=== PATIENT | female | born 1975 | race Caucasian/White ===

== ENCOUNTER 2017-04-17 20:02 | Emergency (ER) | payer BC ==
[~2017-04-17] VITALS: Ht 160 cm; Wt 83.0 kg
[2017-04-18] MEDS ORDERED: ONDANSETRON HCL 4MG/2ML VIAL IV STA (01:44)
[2017-04-18] MEDS ORDERED: SODIUM CHLORIDE 0.9% 1,000 ML IV ONE (01:44)
[2017-04-18 02:04] LABS: HEMATOCRIT. 26.4 % (36.0-48.0); HEMOGLOBIN. 7.6 g/dL (12.0-16.0); LYMPHOCYTES % 30.7 % (20.0-50.0); MEAN CORPUSCULAR HEMOGLOBIN 16.8 pg (28.0-32.0); MEAN CORPUSCULAR VOLUME 58.1 fL (81.0-99.0); MEAN PLATELET VOLUME 8.7 fl (7.4-10.4); MONOCYTES % 8.4 % (2.0-8.0); NEUTROPHILS % 56.9 % (40.0-76.0); PLATELET 246 x1000/uL (130-400); RED BLOOD CELL COUNT 4.54 mill/uL (4.2-5.4); RED CELL DISTRIBUTION WIDTH 19.5 % (11.6-14.6)
[2017-04-18 02:04] LABS: CLARITY URINE CLOUDY (CLEAR); COLOR URINE DARK YELLOW (YELLOW); GLUCOSE URINE NEGATIVE (NEGATIVE); KETONES URINE TRACE (NEGATIVE); LEUKOCYTE ESTERASE URINE NEGATIVE (NEGATIVE); NITRITE URINE NEGATIVE (NEGATIVE); OCCULT BLOOD URINE NEGATIVE (NEGATIVE); PH URINE 5.5 (4.5-8.0); PROTEIN URINE NEGATIVE (NEGATIVE); SPECIFIC GRAVITY URINE 1.032 (1.005-1.030); UROBILINOGEN URINE 0.2 E.U./dL (0.2-1.0)
[2017-04-18 02:13] LABS: CHLORIDE 106 mEq/L (98-107)
[2017-04-18 02:19] LABS: PLATELET ESTIMATE NORMAL
[2017-04-18 02:23] LABS: CARBON DIOXIDE 28 mEq/L (21-32); ETHANOL BLOOD < 10 mg/dL
[2017-04-18] MEDS ORDERED: KETOROLAC 30MG/ML VIAL IV STA (02:25)
[2017-04-18 02:36] VITALS: BP 137/77
[2017-04-18 02:54] LABS: *AMPHETAMINES SCREEN URINE NEGATIVE (NEGATIVE); *BARBITURATES SCREEN URINE NEGATIVE (NEGATIVE); *BENZODIAZEPINES SCREEN URINE NEGATIVE (NEGATIVE); *COCAINE SCREEN URINE NEGATIVE (NEGATIVE); CANNABINOID URINE SCREEN NEGATIVE (NEGATIVE); METHADONE URINE SCREEN NEGATIVE (NEGATIVE); OPIATES URINE SCREEN NEGATIVE (NEGATIVE); PHENCYCLIDINE URINE SCREEN NEGATIVE (NEGATIVE)
== END 2017-04-18 04:03 | disposition home or self-care (01) ==
LOC: ER 20:02
DX: D64.9 Anemia, unspecified (principal); R42 Dizziness and giddiness; R03.0 Elevated blood-pressure reading, without diagnosis of hypertension; R74.0 Nonspecific elevation of levels of transaminase and lactic acid dehydrogenase [LDH]
CPT/HCPCS: 36415; 80053; 80305; 81001; 81025; 85025; 96361; 96374; 96375; 99284; G0482; J1885; J2405; J7030; Z7610

== ENCOUNTER 2017-05-31 08:32 | Inpatient (IN) | payer BC ==
[~2017-05-31] VITALS: Ht 160 cm; Wt 83.9 kg
[2017-05-31] VITALS (10 sets, daily range): BP systolic 100–115; BP diastolic 50–71
[2017-05-31] MEDS ORDERED: FERR140T PO (08:38)
[2017-05-31] MEDS ORDERED: ONDANSETRON HCL 4MG/2ML VIAL IV PRN (09:00)
[2017-05-31] MEDS ORDERED: CLONIDINE 0.1MG TABLET PO PRN (09:00)
[2017-05-31] MEDS ORDERED: HYDROMORPHONE HCL/PF 2MG/ML CPJ IV PRN (09:00)
[2017-05-31] MEDS ORDERED: DOCUSATE SODIUM 100MG CAPSULE PO PRN (09:00)
[2017-05-31 09:19] LABS: HEMATOCRIT. 25.5 % (36.0-48.0); HEMOGLOBIN. 7.8 g/dL (12.0-16.0); LYMPHOCYTES % 37.5 % (20.0-50.0); MEAN CORPUSCULAR HEMOGLOBIN 17.9 pg (28.0-32.0); MEAN CORPUSCULAR VOLUME 58.6 fL (81.0-99.0); MEAN PLATELET VOLUME 8.4 fl (7.4-10.4); MONOCYTES % 10.3 % (2.0-8.0); NEUTROPHILS % 49.2 % (40.0-76.0); PLATELET 216 x1000/uL (130-400); RED BLOOD CELL COUNT 4.35 mill/uL (4.2-5.4); RED CELL DISTRIBUTION WIDTH 19.6 % (11.6-14.6)
[2017-05-31 09:38] LABS: CARBON DIOXIDE 25 mEq/L (21-32); CHLORIDE 106 mEq/L (98-107)
[2017-05-31 09:45] LABS: CLARITY URINE CLEAR (CLEAR); COLOR URINE YELLOW (YELLOW); GLUCOSE URINE NEGATIVE (NEGATIVE); KETONES URINE NEGATIVE (NEGATIVE); LEUKOCYTE ESTERASE URINE NEGATIVE (NEGATIVE); NITRITE URINE NEGATIVE (NEGATIVE); OCCULT BLOOD URINE NEGATIVE (NEGATIVE); PROTEIN URINE NEGATIVE (NEGATIVE); SPECIFIC GRAVITY URINE 1.023 (1.005-1.030); UROBILINOGEN URINE 0.2 E.U./dL (0.2-1.0)
[2017-05-31 09:47] LABS: HCG SCREEN NEGATIVE
[2017-05-31 09:54] LABS: PLATELET ESTIMATE NORMAL
[2017-05-31] MEDS: ACETAMINOPHEN 325MG TABLET PO PRN ×2 (15:07→21:18)
[2017-05-31] MEDS ORDERED: LORAZEPAM 2MG/ML CPJ IV NR (18:40)
[2017-05-31] MEDS: DIPHENHYDRAMINE 50MG/ML VIAL IV PRN ×2 (19:10→23:42)
[2017-06-01 00:25] VITALS: BP_SYST 104; BP_DIAS 62; BP_DIAS 66
[2017-06-01 00:43] VITALS: BP 104/62
[2017-06-01 01:11] LABS: INR 1.1
[2017-06-01 01:17] LABS: HEMATOCRIT 30.8 % (36.0-48.0); HEMOGLOBIN 9.2 g/dL (12.0-16.0)
[2017-06-01 04:31] VITALS: BP 109/58
[2017-06-01 08:00] VITALS: BP 116/68
[2017-06-01] MEDS: DIPHENHYDRAMINE 50MG/ML VIAL IV PRN (08:18)
[2017-06-01 08:20] LABS: BASOPHILS % 0.8 % (0.0-2.0); EOSINOPHILS % 2.4 % (0.0-5.0); HEMATOCRIT. 32.5 % (36.0-48.0); HEMOGLOBIN. 9.9 g/dL (12.0-16.0); LYMPHOCYTES % 40.7 % (20.0-50.0); MEAN CORPUSCULAR HEMOGLOBIN 19.5 pg (28.0-32.0); MEAN CORPUSCULAR VOLUME 64.1 fL (81.0-99.0); MEAN PLATELET VOLUME 8.9 fl (7.4-10.4); MONOCYTES % 10.2 % (2.0-8.0); NEUTROPHILS % 45.9 % (40.0-76.0); PLATELET 220 x1000/uL (130-400); RED BLOOD CELL COUNT 5.08 mill/uL (4.2-5.4); RED CELL DISTRIBUTION WIDTH 25.4 % (11.6-14.6)
[2017-06-01] MEDS ORDERED: GADOBENATE DIMEGLUMINE 529 MG/ML 10ML IV ONE (09:29)
[2017-06-01 10:15] VITALS: BP 116/68
[2017-06-01 16:00] VITALS: BP 120/75
== END 2017-06-01 17:20 | disposition home or self-care (01) | DRG 74 ==
LOC: ER 08:42 → 8WST 10:10 → ENRESERV 11:04
PROVIDERS: ADMIT Internal Medicine Geriatric Medicine; ATTEND Internal Medicine Geriatric Medicine
PROC: 30233N1 Transfusion of Nonautologous Red Blood Cells into Peripheral Vein, Percutaneous Approach (ICD-10-PCS; principal; 2017-05-31)
DX: G90.8 Other disorders of autonomic nervous system (principal); D25.9 Leiomyoma of uterus, unspecified; D50.9 Iron deficiency anemia, unspecified; N83.202 Unspecified ovarian cyst, left side; N88.8 Other specified noninflammatory disorders of cervix uteri; Z82.62 Family history of osteoporosis; Z87.891 Personal history of nicotine dependence
CPT/HCPCS: 36415; 72197; 80053; 81003; 84703; 85014; 85018; 85025; 85049; 85384; 85610; 86850; 86900; 86920; 99285; A9577; J1200; J2060; J7040; P9016

== ENCOUNTER → 2017-06-22 | Outpatient (CLI) | payer BC ==
[~2017-06-22] MED LIST: FERR140T PO
[2017-06-22 11:41] LABS: BASOPHILS % 0.8 % (0.0-2.0); EOSINOPHILS % 6.2 % (0.0-5.0); HEMATOCRIT. 34.5 % (36.0-48.0); HEMOGLOBIN. 10.2 g/dL (12.0-16.0); LYMPHOCYTES % 25.9 % (20.0-50.0); MEAN CORPUSCULAR HEMOGLOBIN 19.9 pg (28.0-32.0); MEAN CORPUSCULAR VOLUME 67.2 fL (81.0-99.0); MEAN PLATELET VOLUME 8.8 fl (7.4-10.4); MONOCYTES % 7.8 % (2.0-8.0); NEUTROPHILS % 59.3 % (40.0-76.0); PLATELET 262 x1000/uL (130-400); RED BLOOD CELL COUNT 5.14 mill/uL (4.2-5.4); RED CELL DISTRIBUTION WIDTH 29.5 % (11.6-14.6)
[2017-06-22 15:29] LABS: PLATELET ESTIMATE NORMAL
== END | disposition home or self-care (01) ==
LOC: LAB 11:17
PROVIDERS: ATTEND Obstetrics & Gynecology Obstetrics
DX: D64.9 Anemia, unspecified (principal)
CPT/HCPCS: 36415; 85025

== ENCOUNTER 2017-07-13 06:10 | Inpatient (IN) | payer BC ==
[~2017-07-13] VITALS: Ht 160 cm; Wt 82.6 kg
[2017-07-13 07:07] LABS: BASOPHILS % 0.6 % (0.0-2.0); EOSINOPHILS % 2.4 % (0.0-5.0); HEMATOCRIT. 34.5 % (36.0-48.0); HEMOGLOBIN. 10.5 g/dL (12.0-16.0); LYMPHOCYTES % 28.9 % (20.0-50.0); MEAN CORPUSCULAR HEMOGLOBIN 22.1 pg (28.0-32.0); MEAN CORPUSCULAR VOLUME 72.2 fL (81.0-99.0); MEAN PLATELET VOLUME 8.6 fl (7.4-10.4); MONOCYTES % 9.1 % (2.0-8.0); PLATELET 237 x1000/uL (130-400); RED BLOOD CELL COUNT 4.78 mill/uL (4.2-5.4)
[2017-07-13 07:16] LABS: PARTIAL THROMBOPLASTIN TIME 26.4 sec (23.4-31.0); PROTHROMBIN TIME 10.7 sec (9.4-11.6)
[2017-07-13 07:20] LABS: CARBON DIOXIDE 30 mEq/L (21-32); CHLORIDE 104 mEq/L (98-107)
[2017-07-13 07:24] LABS: CLARITY URINE CLEAR (CLEAR); COLOR URINE YELLOW (YELLOW); KETONES URINE TRACE (NEGATIVE); LEUKOCYTE ESTERASE URINE NEGATIVE (NEGATIVE); NITRITE URINE NEGATIVE (NEGATIVE); OCCULT BLOOD URINE NEGATIVE (NEGATIVE); PROTEIN URINE NEGATIVE (NEGATIVE); SPECIFIC GRAVITY URINE 1.029 (1.005-1.030)
[2017-07-13 07:34] LABS: UCG SCREEN NEGATIVE
[2017-07-13] MEDS ORDERED: LACTATED RINGERS 1,000 ML IV SCH (08:45)
[2017-07-13] MEDS ORDERED: SKIN ADHESIVE 0.7 GM EA TOP ONE (09:10)
[2017-07-13] MEDS ORDERED: BUPIVACAINE HCL/EPINEPHRINE 0.5%/0.0005 30ML ONE (09:11)
[2017-07-13] MEDS ORDERED: LIDOCAINE HCL/PF 1% 10 MG/ML 5ML VIAL ONE (09:20)
[2017-07-13] MEDS ORDERED: PROPOFOL 200MG/20ML VIAL IV ONE (09:20)
[2017-07-13] MEDS ORDERED: ROCURONIUM BROMIDE 10MG/ML VIAL 5ML IV ONE ×2 (09:20→13:27)
[2017-07-13] MEDS ORDERED: FENTANYL CITRATE/PF 50MCG/ML 2ML VIAL ONE (09:22)
[2017-07-13] MEDS ORDERED: MIDAZOLAM HCL 2 MG/2 ML VIAL ONE (09:22)
[2017-07-13] MEDS ORDERED: CEFAZOLIN SODIUM 1000MG/VIAL ONE (09:28)
[2017-07-13] MEDS ORDERED: SUCCINYLCHOLINE CHLORIDE 200MG/10ML VIAL IV ONE (09:34)
[2017-07-13 09:49] LABS: PLATELET ESTIMATE NORMAL
[2017-07-13] MEDS ORDERED: LABETALOL HCL 5MG/ML VIAL 20ML IV PRN (10:00)
[2017-07-13] MEDS ORDERED: MEPERIDINE HCL/PF 25MG/ML CPJ IV PRN ×2 (10:00→11:15)
[2017-07-13] MEDS ORDERED: HYDROMORPHONE HCL/PF 2MG/ML CPJ IV PRN ×2 (10:00→11:15)
[2017-07-13] MEDS ORDERED: ONDANSETRON HCL 4MG/2ML VIAL IV PRN ×3 (10:00→16:30)
[2017-07-13] MEDS ORDERED: HYDROMORPHONE HCL/PF 2MG/ML (OR) ONE ×2 (10:39→15:00)
[2017-07-13] MEDS ORDERED: LABETALOL HCL 20MG/4ML CARPUJECT IV PRN (11:15)
[2017-07-13] MEDS ORDERED: VASOPRESSIN 20 UNIT/ML 1ML ONE (13:42)
[2017-07-13] MEDS ORDERED: SODIUM CHLORIDE 0.9% 100 ML ONE (13:43)
[2017-07-13] MEDS ORDERED: GLYCOPYRROLATE 0.2 MG/ML 2ML VIAL ONE (14:48)
[2017-07-13] MEDS ORDERED: NEOSTIGMINE METHYLSULFATE 1MG/ML 10 ML VIAL ONE (14:48)
[2017-07-13] MEDS ORDERED: IBUPROFEN 800MG TABLET PO PRN (16:30)
[2017-07-13] MEDS ORDERED: DIPHENHYDRAMINE 50MG/ML VIAL IV NR (16:59)
[2017-07-13 20:00] VITALS: BP 126/77
[2017-07-13] MEDS ORDERED: HYDROMORPHONE HCL/PF 2MG/ML CPJ IV NR (20:51)
[2017-07-13 22:23] VITALS: BP 115/76
[2017-07-13] MEDS: LACTATED RINGERS 1,000 ML IV SCH (23:07)
[2017-07-14] VITALS (7 sets, daily range): BP systolic 104–126; BP diastolic 60–81
[2017-07-14] MEDS: HYDROMORPHONE HCL/PF 2MG/ML CPJ IV PRN ×6 (00:21→22:14)
[2017-07-14] MEDS ORDERED: DIPHENHYDRAMINE 50MG/ML VIAL IV NR (02:00)
[2017-07-14] MEDS: DIPHENHYDRAMINE 50MG/ML VIAL IV PRN ×3 (04:48→22:12)
[2017-07-14 06:36] LABS: BASOPHILS % 0.2 % (0.0-2.0); EOSINOPHILS % 0.1 % (0.0-5.0); HEMATOCRIT. 26.9 % (36.0-48.0); HEMOGLOBIN. 8.3 g/dL (12.0-16.0); MEAN CORPUSCULAR HEMOGLOBIN 22.7 pg (28.0-32.0); MEAN CORPUSCULAR VOLUME 73.6 fL (81.0-99.0); MONOCYTES % 7.7 % (2.0-8.0); PLATELET 200 x1000/uL (130-400); RED BLOOD CELL COUNT 3.65 mill/uL (4.2-5.4); RED CELL DISTRIBUTION WIDTH 32.5 % (11.6-14.6)
[2017-07-14] MEDS: DOCUSATE SODIUM 250MG CAPSULE PO SCH (09:22)
[2017-07-14] MEDS: FERROUS SULFATE 325MG TABLET PO SCH (17:49)
[2017-07-14 23:26] LABS: HEMATOCRIT 27.4 % (36.0-48.0); HEMOGLOBIN 8.5 g/dL (12.0-16.0); MEAN CORPUSCULAR HEMOGLOBIN 22.7 pg (28.0-32.0); MEAN CORPUSCULAR VOLUME 73.8 fL (81.0-99.0); PLATELET 180 x1000/uL (130-400); RED BLOOD CELL COUNT 3.72 mill/uL (4.2-5.4); RED CELL DISTRIBUTION WIDTH 32.2 % (11.6-14.6)
[2017-07-14] MEDS ORDERED: IOHEXOL-350 100 ML BOTTLE ONE (23:27)
[2017-07-15 04:00] VITALS: BP 114/68
[2017-07-15 05:40] LABS: BG BASE EXCESS 3.3 mmol/L (-2.0-2.0); BG CARBOXYHEMOGLOBIN 0.6 % (0.5-1.5); BG DEOXYHEMOGLOBIN 2.4 % (0.0-5.0); BG FRACTION INSPIRED OXYGEN 21; BG HCO3 ACT 28.6 mmol/L (22.0-26.0); BG METHEMOGLOBIN 0.5 % (0.0-1.5); BG OXYGEN SATURATION 97.6 % (92.0-98.5); BG OXYHEMOGLOBIN 96.5 % (94.0-97.0); BG PCO2 47.7 mmHg (35.0-45.0); BG PH 7.396 (7.350-7.450); BG PO2 102.7 mmHg (75.0-100.0); BG SAMPLE SITE LEFT BRACHIAL; BG TOTAL HEMOGLOBIN 8.8 g/dL (12.0-18.0); BG VENT MODE ROOM AIR
[2017-07-15] MEDS: DIPHENHYDRAMINE 50MG/ML VIAL IV PRN ×3 (05:45→19:56)
[2017-07-15] MEDS: HYDROMORPHONE HCL/PF 2MG/ML CPJ IV PRN ×3 (05:46→19:55)
[2017-07-15] MEDS: LACTATED RINGERS 1,000 ML IV SCH (07:06)
[2017-07-15 07:53] LABS: BASOPHILS % 0.3 % (0.0-2.0); EOSINOPHILS % 1.1 % (0.0-5.0); HEMATOCRIT. 26.2 % (36.0-48.0); HEMOGLOBIN. 8.2 g/dL (12.0-16.0); LYMPHOCYTES % 28.4 % (20.0-50.0); MEAN CORPUSCULAR HEMOGLOBIN 23.3 pg (28.0-32.0); MEAN CORPUSCULAR VOLUME 74.8 fL (81.0-99.0); MONOCYTES % 8.2 % (2.0-8.0); PLATELET 173 x1000/uL (130-400); RED CELL DISTRIBUTION WIDTH 32.3 % (11.6-14.6)
[2017-07-15 08:00] VITALS: BP 105/62
[2017-07-15] MEDS ORDERED: IPRATROPIUM/ALBUTEROL 0.5-3(2.5)MG/3ML NEB HHN NR (08:15)
[2017-07-15] MEDS ORDERED: ONDANSETRON HCL 4MG/2ML VIAL IV PRN (08:30)
[2017-07-15] MEDS ORDERED: GUAIFENESIN 200MG/10ML SUGAR FREE UDC PO PRN (08:30)
[2017-07-15 08:43] LABS: CHLORIDE 103 mEq/L (98-107)
[2017-07-15] MEDS ORDERED: FLUTICASONE/VILANTEROL 200-25 BLST.W.DEV ORI SCH (09:00)
[2017-07-15] MEDS ORDERED: ENOXAPARIN 40MG/0.4ML SYR SUBCUT SCH (09:00)
[2017-07-15] MEDS: ENOXAPARIN 30MG/0.3ML SYR SUBCUT SCH ×2 (09:07→20:03)
[2017-07-15] MEDS: DOCUSATE SODIUM 250MG CAPSULE PO SCH (09:07)
[2017-07-15 09:13] LABS: CARBON DIOXIDE 27 mEq/L (21-32)
[2017-07-15] MEDS: IRON SUCROSE COMPLEX 100 MG/5 ML ML IV SCH (09:29)
[2017-07-15 10:26] LABS: TOTAL IRON BINDING CAPACITY 345 ug/dL (250-450)
[2017-07-15 12:00] VITALS: BP 106/67
[2017-07-15] MEDS ORDERED: POTASSIUM CHLORIDE 20MEQ TABLET SR PO NR (13:05)
[2017-07-15] MEDS: IPRATROPIUM/ALBUTEROL 0.5-3(2.5)MG/3ML NEB HHN SCH ×3 (13:38→20:30)
[2017-07-15 16:00] VITALS: BP 122/78
[2017-07-15] MEDS ORDERED: MONTELUKAST SODIUM 10MG TABLET PO SCH (17:00)
[2017-07-15 20:00] VITALS: BP 131/76
[2017-07-15] MEDS: BUDESONIDE 0.5MG/2ML NEB HHN SCH (20:30)
[2017-07-16] VITALS: BP 131/77
[2017-07-16] MEDS: IPRATROPIUM/ALBUTEROL 0.5-3(2.5)MG/3ML NEB HHN SCH ×4 (00:08→12:07)
[2017-07-16] MEDS: DIPHENHYDRAMINE 50MG/ML VIAL IV PRN ×2 (02:27→08:45)
[2017-07-16] MEDS: HYDROMORPHONE HCL/PF 2MG/ML CPJ IV PRN ×2 (02:27→08:46)
[2017-07-16 06:00] VITALS: BP 114/65
[2017-07-16 08:00] VITALS: BP 133/86
[2017-07-16 08:28] LABS: BASOPHILS % 0.4 % (0.0-2.0); EOSINOPHILS % 2.9 % (0.0-5.0); HEMATOCRIT. 27.1 % (36.0-48.0); HEMOGLOBIN. 8.4 g/dL (12.0-16.0); LYMPHOCYTES % 24.4 % (20.0-50.0); MEAN CORPUSCULAR HEMOGLOBIN 23.2 pg (28.0-32.0); MEAN CORPUSCULAR VOLUME 74.8 fL (81.0-99.0); MONOCYTES % 8.3 % (2.0-8.0); PLATELET 201 x1000/uL (130-400); RED BLOOD CELL COUNT 3.63 mill/uL (4.2-5.4); RED CELL DISTRIBUTION WIDTH 32.1 % (11.6-14.6)
[2017-07-16] MEDS: FERROUS SULFATE 325MG TABLET PO SCH ×2 (08:32→08:54)
[2017-07-16] MEDS: IRON SUCROSE COMPLEX 100 MG/5 ML ML IV SCH (08:32)
[2017-07-16] MEDS: DOCUSATE SODIUM 250MG CAPSULE PO SCH (08:32)
[2017-07-16] MEDS: BUDESONIDE 0.5MG/2ML NEB HHN SCH (08:45)
[2017-07-16 08:46] LABS: CARBON DIOXIDE 27 mEq/L (21-32); CHLORIDE 103 mEq/L (98-107)
[2017-07-16] MEDS: ENOXAPARIN 30MG/0.3ML SYR SUBCUT SCH (08:55)
[2017-07-16] MEDS ORDERED: POTASSIUM CHLORIDE 20MEQ TABLET SR PO SCH (09:00)
[2017-07-16 10:15] VITALS: BP 119/80
== END 2017-07-16 12:30 | disposition home or self-care (01) | DRG 742 ==
LOC: OR 06:10 → EEVIPCON 06:10 → 6EST 20:00 → 7WST 07-14 23:48
PROVIDERS: ADMIT Internal Medicine Geriatric Medicine; ATTEND Internal Medicine Geriatric Medicine
PROC: 0UT74ZZ Resection of Bilateral Fallopian Tubes, Percutaneous Endoscopic Approach (ICD-10-PCS; 2017-07-13)
PROC: 8E0W4CZ Robotic Assisted Procedure of Trunk Region, Percutaneous Endoscopic Approach (ICD-10-PCS; 2017-07-13)
PROC: 0UT94ZZ Resection of Uterus, Percutaneous Endoscopic Approach (ICD-10-PCS; principal; 2017-07-13 09:00)
DX: D25.9 Leiomyoma of uterus, unspecified (principal); J96.02 Acute respiratory failure with hypercapnia; J96.01 Acute respiratory failure with hypoxia; N93.9 Abnormal uterine and vaginal bleeding, unspecified; D50.9 Iron deficiency anemia, unspecified; N80.9 Endometriosis, unspecified; L29.9 Pruritus, unspecified; R00.0 Tachycardia, unspecified; J44.9 Chronic obstructive pulmonary disease, unspecified; Z98.51 Tubal ligation status; Z90.722 Acquired absence of ovaries, bilateral
CPT/HCPCS: 36415; 36600; 71010; 71275; 80048; 81003; 81025; 82375; 82805; 83540; 83550; 85025; 85027; 85610; 85730; 86850; 86870; 86900; 86920; 88302; 88307; 93005; 93970; 97162; C1893; J0171; J0330; J0690; J1170; J1200; J1650; J2250; J2405; J2704; J2710; J3010; J3490; J7030; J7050; J7120; J7620; J7626; Q9967

== ENCOUNTER → 2017-12-21 | Outpatient (CLI) | payer BC ==
[2017-12-21 09:15] LABS: BASOPHILS % 0.5 % (0.0-2.0); EOSINOPHILS % 3.4 % (0.0-5.0); HEMATOCRIT. 39.2 % (36.0-48.0); MEAN CORPUSCULAR HEMOGLOBIN 28.2 pg (28.0-32.0); MEAN CORPUSCULAR VOLUME 84.7 fL (81.0-99.0); MEAN PLATELET VOLUME 9.1 fl (7.4-10.4); MONOCYTES % 9.4 % (2.0-8.0); NEUTROPHILS % 56.7 % (40.0-76.0); PLATELET 197 x1000/uL (130-400); RED BLOOD CELL COUNT 4.62 mill/uL (4.2-5.4); RED CELL DISTRIBUTION WIDTH 15.6 % (11.6-14.6)
[2017-12-21 09:19] LABS: CLARITY URINE HAZY (CLEAR); COLOR URINE YELLOW (YELLOW); KETONES URINE NEGATIVE (NEGATIVE); LEUKOCYTE ESTERASE URINE 2+ (NEGATIVE); NITRITE URINE POSITIVE (NEGATIVE); OCCULT BLOOD URINE NEGATIVE (NEGATIVE); PH URINE 6.5 (4.5-8.0); PROTEIN URINE NEGATIVE (NEGATIVE); SPECIFIC GRAVITY URINE 1.022 (1.005-1.030)
[2017-12-22 08:18] LABS: ESTRADIOL < 6.0 pg/mL (.); FOLICLE STIMULATING HORMONE 60.1 mIU/mL (.)
== END | disposition home or self-care (01) ==
LOC: MAMMO 08:09
PROVIDERS: ATTEND Obstetrics & Gynecology Obstetrics
DX: Z12.31 Encounter for screening mammogram for malignant neoplasm of breast (principal); N95.1 Menopausal and female climacteric states; D50.9 Iron deficiency anemia, unspecified; N31.0 Uninhibited neuropathic bladder, not elsewhere classified; N03.0 Chronic nephritic syndrome with minor glomerular abnormality; R79.89 Other specified abnormal findings of blood chemistry; Z79.899 Other long term (current) drug therapy
CPT/HCPCS: 36415; 77067; 81003; 82670; 83001; 83002; 84443; 85025; 87086; 87186

== ENCOUNTER → 2019-03-16 | Outpatient (CLI) | payer BC ==
[~2019-03-16] MED LIST changes: -FERR140T PO; +FERR140T2 PO
[2019-03-16 09:26] LABS: BASOPHILS % 0.4 % (0.0-2.0); EOSINOPHILS % 3.4 % (0.0-5.0); HEMATOCRIT. 40.4 % (36.0-48.0); HEMOGLOBIN. 13.5 g/dL (12.0-16.0); LYMPHOCYTES % 36.3 % (20.0-50.0); MEAN CORPUSCULAR HEMOGLOBIN 29.1 pg (28.0-32.0); MEAN CORPUSCULAR VOLUME 87.5 fL (81.0-99.0); MEAN PLATELET VOLUME 9.5 fl (7.4-10.4); MONOCYTES % 7.8 % (2.0-8.0); NEUTROPHILS % 52.1 % (40.0-76.0); PLATELET 181 x1000/uL (130-400); RED BLOOD CELL COUNT 4.62 mill/uL (4.2-5.4); RED CELL DISTRIBUTION WIDTH 14.7 % (11.6-14.6)
[2019-03-16 09:28] LABS: CHLORIDE 104 mEq/L (98-107)
[2019-03-16 09:34] LABS: TOTAL IRON BINDING CAPACITY 429 ug/dL (250-450)
[2019-03-16 09:36] LABS: HDL CHOLESTEROL 51 mg/dL (40-59); LDL CHOLESTEROL 113 mg/dL (5-100)
[2019-03-16 10:33] LABS: VITAMIN B12 SERUM 307 pg/mL (211-911)
[2019-03-16 12:27] LABS: FERRITIN 35 ng/mL (10-291)
== END | disposition home or self-care (01) ==
LOC: LAB 08:26
PROVIDERS: ATTEND Internal Medicine Geriatric Medicine
DX: N39.0 Urinary tract infection, site not specified (principal)
CPT/HCPCS: 36415; 80061; 82306; 82607; 82728; 83036; 83540; 83550; 86592

== ENCOUNTER → 2019-03-30 | Outpatient (CLI) | payer BC | END | disposition home or self-care (01) | LOC: US 07:33 | PROVIDERS: ATTEND Internal Medicine Geriatric Medicine | DX: K76.0 Fatty (change of) liver, not elsewhere classified (principal); M21.612 Bunion of left foot; R74.0 Nonspecific elevation of levels of transaminase and lactic acid dehydrogenase [LDH] | CPT/HCPCS: 73660; 76700 ==

== ENCOUNTER → 2019-03-30 | Outpatient (CLI) | payer BC ==
[2019-03-30 08:50] LABS: CHLORIDE 108 mEq/L (98-107)
== END | disposition home or self-care (01) ==
LOC: RAD 07:31
PROVIDERS: ATTEND Podiatrist Foot & Ankle Surgery
DX: M79.675 Pain in left toe(s) (principal); M79.674 Pain in right toe(s)
CPT/HCPCS: 36415

== ENCOUNTER 2019-11-21 16:27 | Emergency (ER) | payer BC ==
[~2019-11-21] VITALS: Ht 160 cm; Wt 60.0 kg
[2019-11-21 18:13] LABS: BASOPHILS % 0.4 % (0.0-2.0); EOSINOPHILS % 1.7 % (0.0-5.0); HEMATOCRIT. 40.2 % (36.0-48.0); HEMOGLOBIN. 13.6 g/dL (12.0-16.0); LYMPHOCYTES % 27.2 % (20.0-50.0); MEAN CORPUSCULAR HEMOGLOBIN 29.7 pg (28.0-32.0); MEAN CORPUSCULAR VOLUME 87.9 fL (81.0-99.0); MEAN PLATELET VOLUME 9.5 fl (7.4-10.4); MONOCYTES % 8.6 % (2.0-8.0); NEUTROPHILS % 62.1 % (40.0-76.0); PLATELET 180 x1000/uL (130-400); RED BLOOD CELL COUNT 4.57 mill/uL (4.2-5.4); RED CELL DISTRIBUTION WIDTH 13.9 % (11.6-14.6)
[2019-11-21 18:18] LABS: CHLORIDE 106 mEq/L (98-107)
[2019-11-21 18:24] LABS: HCG SCREEN NEGATIVE
[2019-11-21 21:02] VITALS: BP 138/94
== END 2019-11-21 21:04 | disposition home or self-care (01) ==
LOC: ER 16:27
DX: R07.89 Other chest pain (principal); Z90.710 Acquired absence of both cervix and uterus
CPT/HCPCS: 36415; 71275; 80053; 84484; 84703; 85025; 93005; 99285

== ENCOUNTER → 2020-12-03 | Outpatient (CLI) | payer BC ==
[2020-12-03 08:05] LABS: CHLORIDE 108 mEq/L (98-107)
[2020-12-03 08:11] LABS: CLARITY URINE CLEAR (CLEAR); COLOR URINE YELLOW (YELLOW); KETONES URINE TRACE (NEGATIVE); LEUKOCYTE ESTERASE URINE NEGATIVE (NEGATIVE); NITRITE URINE NEGATIVE (NEGATIVE); OCCULT BLOOD URINE NEGATIVE (NEGATIVE); PH URINE 5.5 (4.5-8.0); PROTEIN URINE NEGATIVE (NEGATIVE); SPECIFIC GRAVITY URINE 1.027 (1.005-1.030); UROBILINOGEN URINE 0.2 E.U./dL (0.2-1.0)
[2020-12-03 08:13] LABS: LDL CHOLESTEROL 104 mg/dL (5-100)
[2020-12-03 08:14] LABS: HDL CHOLESTEROL 46 mg/dL (40-59)
[2020-12-03 08:20] LABS: TOTAL IRON BINDING CAPACITY 426 ug/dL (250-450)
[2020-12-03 08:28] LABS: BASOPHILS % 0.6 % (0.0-2.0); EOSINOPHILS % 2.8 % (0.0-5.0); HEMATOCRIT. 38.4 % (36.0-48.0); HEMOGLOBIN. 13.1 g/dL (12.0-16.0); LYMPHOCYTES % 33.5 % (20.0-50.0); MEAN CORPUSCULAR HEMOGLOBIN 29.3 pg (28.0-32.0); MEAN CORPUSCULAR VOLUME 86.3 fL (81.0-99.0); MEAN PLATELET VOLUME 9.1 fl (7.4-10.4); MONOCYTES % 8.6 % (2.0-8.0); NEUTROPHILS % 54.5 % (40.0-76.0); PLATELET 171 x1000/uL (130-400); RED BLOOD CELL COUNT 4.45 mill/uL (4.2-5.4); RED CELL DISTRIBUTION WIDTH 14.2 % (11.6-14.6)
[2020-12-03 11:36] LABS: FERRITIN 44 ng/mL (10-291); FOLIC ACID (FOLATE) SERUM >20 ng/mL ng/mL (>5.38)
[2020-12-03 11:46] LABS: VITAMIN B12 SERUM 207 pg/mL (211-911)
== END | disposition home or self-care (01) ==
LOC: LAB 06:28
PROVIDERS: ATTEND Internal Medicine Geriatric Medicine
DX: Z00.01 Encounter for general adult medical examination with abnormal findings (principal); D50.0 Iron deficiency anemia secondary to blood loss (chronic); N39.0 Urinary tract infection, site not specified
CPT/HCPCS: 36415; 80053; 80061; 81003; 82306; 82607; 82728; 82746; 83036; 83540; 83550; 84443; 85025; 86592

== ENCOUNTER → 2020-12-05 | Outpatient (CLI) | payer BC | END | disposition home or self-care (01) | LOC: MAMMO 07:31 | PROVIDERS: ATTEND Internal Medicine Geriatric Medicine | DX: Z12.31 Encounter for screening mammogram for malignant neoplasm of breast (principal); M81.0 Age-related osteoporosis without current pathological fracture; M43.16 Spondylolisthesis, lumbar region; M47.26 Other spondylosis with radiculopathy, lumbar region; M48.061 Spinal stenosis, lumbar region without neurogenic claudication; M25.532 Pain in left wrist | CPT/HCPCS: 72148; 73110; 77063; 77067; 77080 ==

== ENCOUNTER → 2021-03-03 | Outpatient (CLI) | payer BC ==
[2021-03-03 08:08] LABS: PARTIAL THROMBOPLASTIN TIME 29.7 sec (23.4-31.0); PROTHROMBIN TIME 11.1 sec (9.6-11.0)
[2021-03-03 08:19] LABS: CHLORIDE 105 mEq/L (98-107)
[2021-03-03 08:29] LABS: BASOPHILS % 0.4 % (0.0-2.0); EOSINOPHILS % 3.2 % (0.0-5.0); HEMATOCRIT. 40.6 % (36.0-48.0); HEMOGLOBIN. 13.8 g/dL (12.0-16.0); MEAN CORPUSCULAR HEMOGLOBIN 30.2 pg (28.0-32.0); MEAN CORPUSCULAR VOLUME 88.7 fL (81.0-99.0); MEAN PLATELET VOLUME 9.7 fl (7.4-10.4); MONOCYTES % 7.4 % (2.0-8.0); PLATELET 166 x1000/uL (130-400); RED BLOOD CELL COUNT 4.57 mill/uL (4.2-5.4); RED CELL DISTRIBUTION WIDTH 13.5 % (11.6-14.6)
[2021-03-04 09:08] LABS: ANTI-NUCLEAR ANTIBODIES DIRECT Positive (Negative)
[2021-03-05 13:06] LABS: ACTIN (SMOOTH MUSCLE) ANTIBODY 28 Units (0-19)
== END | disposition home or self-care (01) ==
LOC: LAB 07:38
PROVIDERS: ATTEND Internal Medicine Gastroenterology
DX: K75.81 Nonalcoholic steatohepatitis (NASH) (principal); B18.2 Chronic viral hepatitis C
CPT/HCPCS: 36415; 80048; 80076; 85025; 85384; 86038

== ENCOUNTER → 2021-03-19 | Day surgery (SDC) | payer BC ==
[2021-03-19] VITALS (12 sets, daily range): BP systolic 133–170; BP diastolic 86–101
[~2021-03-19] VITALS: Ht 167.6 cm; Wt 80.7 kg
[~2021-03-19] MED LIST changes: +FENTANYL CITRATE/PF 50MCG/ML 2ML VIAL IV ONE; +FENTANYL CITRATE/PF 50MCG/ML 2ML VIAL ONE; +HYDROCODONE/ACETAMINOPHEN 5/325MG TABLET PO PRN; +LIDOCAINE HCL 1% 20ML VIAL (Pyxis) INJ ONE; +NALOXONE HCL 0.4MG/ML VIAL IV PRN; +SODIUM BICARBONATE 4% (2.4MEQ) 5ML VIAL IV ONE
[2021-03-19 12:12] LABS: HEMATOCRIT 38.9 % (36.0-48.0); HEMOGLOBIN 12.9 g/dL (12.0-16.0)
== END | disposition home or self-care (01) ==
LOC: RAD 07:32
PROVIDERS: ATTEND Internal Medicine Gastroenterology
DX: K75.89 Other specified inflammatory liver diseases (principal); Z87.891 Personal history of nicotine dependence; Z20.822 Contact with and (suspected) exposure to COVID-19; Z79.899 Other long term (current) drug therapy; Z98.890 Other specified postprocedural states
CPT/HCPCS: 36415; 47000; 76942; 85014; 85018; 87426; 88307; J3010; J3490; 88313

== ENCOUNTER → 2021-11-30 | Outpatient (CLI) | payer BC ==
[~2021-11-30] MED LIST changes: -FENTANYL CITRATE/PF 50MCG/ML 2ML VIAL IV ONE; -FENTANYL CITRATE/PF 50MCG/ML 2ML VIAL ONE; -HYDROCODONE/ACETAMINOPHEN 5/325MG TABLET PO PRN; -LIDOCAINE HCL 1% 20ML VIAL (Pyxis) INJ ONE; -NALOXONE HCL 0.4MG/ML VIAL IV PRN; -SODIUM BICARBONATE 4% (2.4MEQ) 5ML VIAL IV ONE
[2021-11-30 08:16] LABS: BASOPHILS % 0.4 % (0.0-2.0); EOSINOPHILS % 2.8 % (0.0-5.0); HEMATOCRIT. 39.4 % (36.0-48.0); HEMOGLOBIN. 13.3 g/dL (12.0-16.0); LYMPHOCYTES % 35.1 % (20.0-50.0); MEAN CORPUSCULAR HEMOGLOBIN 29.5 pg (28.0-32.0); MEAN CORPUSCULAR VOLUME 87.3 fL (81.0-99.0); MEAN PLATELET VOLUME 8.9 fl (7.4-10.4); MONOCYTES % 9.6 % (2.0-8.0); NEUTROPHILS % 52.1 % (40.0-76.0); PLATELET 161 x1000/uL (130-400); RED BLOOD CELL COUNT 4.51 mill/uL (4.2-5.4); RED CELL DISTRIBUTION WIDTH 13.6 % (11.6-14.6)
[2021-11-30 09:14] LABS: CHLORIDE 107 mEq/L (98-107)
[2021-11-30 09:29] LABS: HDL CHOLESTEROL 46 mg/dL (40-59); LDL CHOLESTEROL 90 mg/dL (5-100)
[2021-11-30 10:17] LABS: FOLIC ACID (FOLATE) SERUM 15.5 ng/mL (>5.38)
[2021-11-30 10:50] LABS: CARCINO EMBRYONIC ANTIGEN 1.4 ng/ml
[2021-12-01 09:10] LABS: ANTI-NUCLEAR ANTIBODIES DIRECT Positive (Negative)
[2021-12-02 09:06] LABS: VITAMIN D 1-25 DIHYDROXY 71.3 pg/mL (19.9-79.3)
== END | disposition home or self-care (01) ==
LOC: LAB 07:47
PROVIDERS: ATTEND Internal Medicine Geriatric Medicine
DX: K76.0 Fatty (change of) liver, not elsewhere classified (principal); L50.9 Urticaria, unspecified
CPT/HCPCS: 36415; 80053; 80061; 82378; 82607; 82652; 82746; 83036; 84443; 85025; 86038; 86430; 86592